=== PATIENT | female | born 1990 | race Caucasian/White ===

== ENCOUNTER 2018-10-13 15:11 | Emergency (ER) | payer SELFPAY ==
[~2018-10-13] VITALS: Ht 165.1 cm; Wt 63.8 kg
[2018-10-13 15:28] VITALS: BP 138/72
== END 2018-10-13 17:50 | disposition left against medical advice (07) ==
LOC: ED 17:44
DX: M25.472 Effusion, left ankle (principal); M25.471 Effusion, right ankle
CPT/HCPCS: 99281